=== PATIENT | male | born 1960 | race Caucasian/White ===

== ENCOUNTER 2020-10-16 19:15 | Emergency (ER) | payer OTHER ==
[~2020-10-16] VITALS: Ht 182.9 cm; Wt 95.3 kg
[2020-10-16 19:57] VITALS: BP 127/82
== END 2020-10-16 19:59 | disposition home or self-care (01) ==
LOC: ER 19:15
DX: S01.01XA Laceration without foreign body of scalp, initial encounter (principal); W00.2XXA Other fall from one level to another due to ice and snow, initial encounter; Y93.89 Activity, other specified; Y92.89 Other specified places as the place of occurrence of the external cause; Y99.9 Unspecified external cause status